=== PATIENT | female | born 1995 | race Caucasian/White ===

== ENCOUNTER 2017-10-28 17:40 | Emergency (ER) | payer OTHER ==
[~2017-10-28] VITALS: Ht 167.6 cm; Wt 90.7 kg
[2017-10-28 17:50] VITALS: Ht 167.6 cm; Wt 90.7 kg
[2017-10-28 22:14] VITALS: BP 124/80
== END 2017-10-28 22:14 | disposition home or self-care (01) ==
LOC: ED 17:40
DX: R10.9 Unspecified abdominal pain (principal)

== ENCOUNTER 2019-06-28 16:34 | Emergency (ER) | payer OTHER ==
[~2019-06-28] VITALS: Ht 167.6 cm; Wt 91.2 kg
[2019-06-28 16:41] VITALS: Ht 167.6 cm; Wt 91.2 kg
[2019-06-28 17:05] LABS: microscopic required? NO
[2019-06-28 18:02] LABS: BASOPHIL % 0.5 % (0-2); PLATELET COUNT 262 x10^3mcL (130-400)
[2019-06-28 18:03] LABS: UA SPECIFIC GRAVITY >=1.030 (1.005-1.035); urine erythrocyte NEGATIVE (NEGATIVE)
[2019-06-28 18:04] LABS: RED CELL DISTRIBUTION WIDTH 15.1 % (11.5-14.5)
[2019-06-28 18:18] LABS: CALCIUM 8.5 mg/dL (8.5-10.1); CARBON DIOXIDE 28.8 mmol/L (21-32); CHLORIDE SERUM 103 mmol/L (98-107); CREATININE SERUM 0.7 mg/dL (0.6-1.0); GFR1 > 60 mL/min; GLUCOSE SERUM 100 mg/dL (74-106); POTASSIUM SERUM 3.6 mmol/L (3.5-5.1); SODIUM SERUM 139 mmol/L (136-145)
[2019-06-28 18:22] LABS: ALBUMIN 3.6 g/dL (3.4-5.0); ALKALINE PHOSPHATASE 68 U/L (46-116); ALT/SGPT 16 U/L (14-59); AST/SGOT 6 U/L (15-37); BILIRUBIN TOTAL 0.25 mg/dL (0.20-1.00); LIPASE 124 IU/L (73-393); TOTAL PROTEIN, SERUM 7.2 g/dL (6.4-8.2)
[2019-06-28 20:18] VITALS: BP 138/49
== END 2019-06-28 20:18 | disposition home or self-care (01) ==
LOC: ED 16:34
PROVIDERS: Emergency Medicine
DX: R11.0 Nausea (principal); R34 Anuria and oliguria; R10.9 Unspecified abdominal pain
CPT/HCPCS: 36415; J1885; Q0092